=== PATIENT | male | born 1950 | race Caucasian/White ===

== ENCOUNTER 2018-07-22 11:37 | Inpatient (IN) | payer OTHER ==
[2018-07-22] VITALS (9 sets, daily range): BP systolic 111–183; BP diastolic 70–97
[~2018-07-22] VITALS: Ht 177.8 cm; Wt 93.0 kg
[~2018-07-22 11:37] MED LIST: AMOXIL 875 MG875 M1 PO; ASPIRIN325 PO; FISH OIL 1,0001 EAC6 PO; GLUCOSAMINE &1 EACH PO; IMDUR 30 MG TAB30 M1 PO; LOPID600 MG PO; METFORMIN HCL500 MG PO; MOBIC15 MG PO; TOPROL XL50 MG PO; ZESTRIL20 MG PO; ZOCOR40 MG PO
[2018-07-22 12:43] LABS: ABSOLUTE NEUTROPHILS 4.6 thou/uL (1.4-8.2); BASOPHILS 1.3 % (0.0-2.0); EOSINOPHILS 4.9 % (0.0-3.0); HEMATOCRIT 40.6 % (42.0-52.0); HEMOGLOBIN 13.5 gm/dL (14.0-18.0); LYMPHOCYTES 14.2 % (24.0-44.0); MCHC 33.4 g/dL (28.0-37.0); PLATELET COUNT 194 thou/uL (150-400); POLYS 73.6 % (36.0-66.0); RBC 4.37 mil/uL (4.50-6.00); RDW 14.9 % (10.5-14.5); WBC 6.2 thou/uL (4.0-11.0)
[2018-07-22 12:54] LABS: ANION GAP 10 mmol/L (7-16); BUN 18 mg/dL (7-18); CALCIUM 9.4 mg/dL (8.5-10.1); CHLORIDE 103 mmol/L (98-107); CO2 25 mmol/L (21-32); CREATININE 1.2 mg/dL (0.7-1.3); GLUCOSE 249 mg/dL (74-106); POTASSIUM 3.5 mmol/L (3.5-5.1); SODIUM 138 mmol/L (136-145)
[2018-07-22 13:01] LABS: ALBUMIN 3.4 g/dL (3.4-5.0); SGOT 12 U/L (15-37); SGPT 18 U/L (30-65); TOTAL BILIRUBIN 0.2 mg/dL (<0.1-1.0); TOTAL PROTEIN 7.1 g/dL (6.4-8.2); TROPONIN-I <0.06 ng/mL (<0.06)
--- NOTE | 2018-07-22 13:31 | EKG ---
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
--- NOTE | 2018-07-22 18:02 | CATHLAB ---
[facility] [address] [place] [address] INVASIVE PROCEDURE REPORT Name: MANJULA DONIS Room #: 218-P ADM IN M.R.#: [id number] Admission: 07/22/18 Attend Phys: Elkin Botello MD, Discharge: Date of : 48 Date of Service: 07/22/18 180 Report #: [id number] THIS REPORT FOR: //name// APPROVED REPORT Study performed: 07/22/2018 15:26:32 Patient Details Patient Status: In-Patient Room #: 218 The patient is a 67 year-old male Event Personnel Gildardo Lindsay Change Management Manager, Eris Kilgore RN RN, Florentin Hensley [place], Nancy RTR, NUCLEAR FUEL ENRICHMENT TECHNICIAN Monitor, Margarita Caldwell RN RN, Laura Keene RT(R)() Monitor Procedures Performed Art Access - R femoral artery* Left Heart Cath Coronaries, Bypass Grafts [id number] LHCCORCABG ANGUS Place w/wo Plasty Single RCA 327695 Hemostasis w/ Mynx 98482 Initial Mod Sed Same Phys/QHP Gr5y 747962 65925 Mod Sed Same Phys/QHP Ea 784494 Indication Unstable angina (>12 hrs to = 24 hrs), Chest pain Risk Factors Arterial HypertensionDysplipidemia , Chronic Lung DiseaseHypercholesterolemia, Coronary Artery DiseaseHypertension, Diabetes Tobacco History () Previous Procedures/Diagnoses Previous CABGPrevious PCI, Previous DE Procedure Narrative The Right Groin^ was infiltrated with 1% Lidocaine subcutaneous anesthesia. A PINNACLE 6FR Sheath #[id number] sheath was inserted into the RFA^. Coronary angiography was performed using coronary diagnostic catheters. The right coronary system was accessed and visualized with a JR4 catheter. The left coronary system was accessed and visualized with a JL4 catheter. The left ventricle was accessed and visualized with a ANGLED PIGTAIL catheter. Left ventricular/Aortic Valve gradient assessed via catheter pullback. Left ventriculogram was performed in 30 degree projection. Closure device was deployed with a 6 Fr MYNXGRIP 6/7F #[id number]. The patient tolerated the procedure well and there were no complications [address] [address] INVASIVE PROCEDURE REPORT Name: MANJULA DONIS Room #: 218-P [facility]#: [id number] Admission: 07/22/18 Attend Phys: Elkin Botello MD, Discharge: Date of : 48 Date of Service: 07/22/18 1801 Report #: [id number] associated with the procedure. There was no hematoma. Intraoperative Conscious Sedation Sedation start time: 16:06 Case end Time: 17:15 Fentanyl 150 mcg Versed 1 mg Fluoro Time: 9.50 minutes Dose: DAP 82206.60 cGycm2 1545 mGy Contrast Type and Amount: Omnipaque 285 ml Coronary Angiography The patient's coronary anatomy is right dominant. [place] Artery Percent Stenosis 6 prior bypasses; although but left internal mammary artery patent Diagnostic Cath Left Main 30% distal left main stenosis LAD Long-standing severe mid LAD stenosis before its occlusion Patent left internal mammary to the LAD Circumflex Large codominant circumflex. Mild proximal circumflex plaquing within proximal stent OM1 Large trifurcating single marginal branch with 30-40% proximal sequential stenoses Long mid OM branch stent, widely patent without stenosis Right Coronary Ulcerated 99% proximal right coronary stenosis Sequential 40-50% mid right coronary stenoses R PDA 80% ostial posterior descending branch stenosis. This occurred at a 90 angle to the distal right coronary RPLV Large posterior lateral branch with moderate proximal plaquing Left Ventriculography The left ventricle is normal in size with normal contractility. The left ventricular ejection fraction is estimated to be 50-55%. Left ventricular wall motion abnormalities are not present. There is no mitral insufficiency. Hemodynamics The aortic pressure is 168/68 mmHg with a mean of 109 mmHg. The left ventricular pressure is 155/8 mmHg with a mean of mmHg. The left [facility] [address] [place] [address] INVASIVE PROCEDURE REPORT Name: MANJUAL DONIS Room #: 218-P [facility] IN M.R.#: [id number] Admission: 07/22/18 Attend Phys: Elkin Botello MD, Discharge: Date of : 48 Date of Service: 07/22/18 1801 Report #: [id number] ventricular end diastolic pressure is 25 mmHg. PCI Technique Lesion Anticoagulation was achieved with Heparin, Integrilin. Patient was preloaded with Plavix. Percutaneous coronary intervention was performed on the proximal right coronary artery. The lesion stenosis prior to intervention was 99% with MANAN 3 flow. A Luge Wire .014 x 182CM #[id number] Guide Catheter was used to engage the right coronary ostium. A LAUNCHER 6FR JR 4 #[id number] Interventional Guidewire was used to cross the lesion. BALLOON DILATION A Balloon catheter Euphora RX 3.5 x 12 #[id number] was inserted and inflated up to 14.00atm for 28seconds. STENT DEPLOYMENT A drug-eluting stent XIENCE LOKESH RX 4.0 X 15 #[id number] was inserted and inflated up to 14.00atm for 30seconds. 3.0MM X 23MM XIENCE LOKESH DRUG-ELUTING STENT WAS DEPLOYED DISTAL TO 4.0MM X 15MM XIENCE LOKESH DRUG-ELUTING STENT AND INFLATED UP TO 12 SIVAKUMAR FOR 26 SECONDS. The initial 4.0 x 15 mm stent created a focal dissection at the distal margin of the stent with significant luminal narrowing. This region was covered with a 3.0 x 23 mm stent POST STENT DEPLOYMENT BALLOON DILATION A Balloon catheter TREK NC RX 3.0 X 15 #[id number] was inserted and inflated up to 18.00atm for 27seconds. Additional Inflation: 22.00atm for 25seconds. 4.0MM X 12MM NC TREK USED TO POST DILATE 4.0MM X 15MM XIENCE LOKESH AND INFLATED 14 SIVAKUMAR FOR 27 SECONDS. ADDITIONAL INFLATION 22 SIVAKUMAR FOR 31 SECONDS Conclusion 1. Normal global and regional left ventricular systolic function. Ejection fraction 55% 2. 30% left main stenosis 3. Severe proximal LAD stenosis with patent left internal mammary to the LAD 4. Widely patent circumflex and first marginal branch stents 5. Severe proximal right coronary disease successfully stented in sequence 4.0 x 15 proximal then 3.0 x 23mm [place] stents Recommendations Smoking Cessation Daily ASA with Plavix for at least one year Cardiac Rehabilitation Referral [facility] [address] [address] INVASIVE PROCEDURE REPORT Name: MANJULA DONIS Room #: 218-P [facility] IN M.R.#: [id number] Admission: 07/22/18 Attend Phys: Elkin Botello MD, Discharge: Date of : 48 Date of Service: 07/22/181800 Report #: [id number] Medications Administered HEMANTH Inhibitor (any) Aspirin (any) Beta Manoj (any) Statin (any) Clopidogrel Cardiac Rehabilitation Referral Smoking Cessation <ELECTRONICALLY SIGNED> By: Gildardo Lindsay MD, FACC 07/22/181800 00 00 Gildardo Lindsay MD, FACC /INF
[2018-07-23 00:46] VITALS: BP 143/69
[2018-07-23 03:55] LABS: HEMATOCRIT 37.8 % (42.0-52.0); MCH 31.8 pg (26.0-34.0); MCHC 34.3 g/dL (28.0-37.0); MCV 92.6 fL (80.0-100.0); RBC 4.08 mil/uL (4.50-6.00); RDW 14.7 % (10.5-14.5); WBC 6.8 thou/uL (4.0-11.0)
[2018-07-23 04:45] VITALS: BP 124/78
[2018-07-23] MEDS ORDERED: CRESTOR40 MG PO (08:14)
--- NOTE | 2018-07-23 08:18 | EKG ---
[address] [employer] [address] ELECTROCARDIOGRAM REPORT Name: MANJULA DONIS Room #: 218-P ADM IN M.R.#: [id number] Admission: 07/22/18 Attend Phys: Elkin Botello MD, FAAF Discharge: Date of : 48 Report #: [id number] THIS REPORT FOR: //name// [facility] Test Date: 2018-07-22 Test Time: 18:30:21 Pat Name: MANJULA DONIS Department: Room: 218 Gender: M Cdl Service Technician: Victoria BOLDEN : 1950 Requested By: Gildardo Lindsay Order Number: [id number] MD: Kb Frank Measurements Intervals [place] Rate: 66 P: 0 [place]: 157 QRS: 5 QRSD: 109 T: 85 QT: 441 QTc: 463 Interpretive Statements Sinus rhythm Borderline T wave abnormalities Compared to ECG 07/22/2018 11:43:54 T-wave abnormality now present Sinus tachycardia no longer present Electronically Signed On 07-23-2018 8:18:35 INFORMATICS MANAGER by Kb Frank [email or web address] <ELECTRONICALLY SIGNED> By: Kb Frank MD 07/23/18817 29 29 Kb Frank MD /[place]
--- NOTE | 2018-07-23 08:23 | EKG ---
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
[2018-07-23 09:05] VITALS: BP 168/78
[2018-07-23 11:10] VITALS: BP 148/75
[2018-07-23 11:25] LABS: CHOLESTEROL 121 mg/dL (<200); HDL CHOLESTEROL 24 mg/dL (>40); TRIGLYCERIDE 594 mg/dL (<150); VLDL 119 mg/dL (<40)
[2018-07-23 18:43] VITALS: BP 148/75
== END 2018-07-23 19:15 | disposition home or self-care (01) | DRG 246 ==
LOC: ER 11:37 → EROBS 13:42 → 2N 13:42 → 3W 15:18 → 2N 17:30
PROVIDERS: Internal Medicine; Student in an Organized Health Care Education/Training Program; ADMIT Family Medicine
DX: I25.110 Atherosclerotic heart disease of native coronary artery with unstable angina pectoris (principal); I50.33 Acute on chronic diastolic (congestive) heart failure; I10 Essential (primary) hypertension; E78.5 Hyperlipidemia, unspecified; N40.0 Benign prostatic hyperplasia without lower urinary tract symptoms; E11.9 Type 2 diabetes mellitus without complications; F17.210 Nicotine dependence, cigarettes, uncomplicated; Z95.1 Presence of aortocoronary bypass graft; Z95.5 Presence of coronary angioplasty implant and graft; Z71.6 Tobacco abuse counseling; Z79.82 Long term (current) use of aspirin; Z79.84 Long term (current) use of oral hypoglycemic drugs; Z79.899 Other long term (current) drug therapy; Z88.1 Allergy status to other antibiotic agents
CPT/HCPCS: 10081